=== PATIENT | female | born 1995 | race Caucasian/White ===

== ENCOUNTER 2017-04-10 17:56 | Emergency (ER) | payer BC ==
[~2017-04-10] VITALS: Ht 160 cm; Wt 52.2 kg
[2017-04-10 18:03] VITALS: BP 136/74
--- NOTE | 2017-04-10 18:54 | PHYS DOC ---
Past History Past Medical History: No Pertinent History Past Surgical History: Other Alcohol Use: None Drug Use: None Adult General Chief Complaint Chief Complaint: PAIN ON URINATION HPI HPI Patient is a 21-year-old female who presents here today complaining of dysuria frequency urgency and right flank pain. Patient reports she's had urinary tract infections in the past and this feels similar to it. Patient reports that she started taking Azo for her symptoms. She denies any symptomatology. Patient has any fevers shakes chills nausea vomiting diarrhea cough cold or runny nose. Patient denies any past medical history. Patient has any hypertension diabetes liver longer kidney pals. Patient is not smoke drink or do any drugs. Patient has no known drug allergies. Patient has had no abdominal surgeries in the past. Patient's ER physical exam is significant for mild tenderness to palpation to her left flank pain. Patient reports the pain is reproducible with rotation of her torso. Pain is reproducible with palpation. Patient's abdomen is soft nontender no rebound or guarding. Patient does not present with any signs or symptoms of be consistent with an acute surgical abdomen. Review of systems: Constitutional: Denies fever or chills Eyes: Denies change in visual acuity, redness, or eye pain HENT: Denies nasal congestion or sore throat All other review systems are negative except as documented in the history of present illness portion. Physical exam: Constitutional: Well developed, well nourished, no acute distress, non-toxic appearance. HENT: Normocephalic, atraumatic, bilateral external ears normal, nose normal. Eyes: EOMI, conjunctiva normal, no discharge. Neck: Normal range of motion, no tenderness, supple, no stridor. Cardiovascular:Heart rate regular rhythm Lungs & Thorax: Bilateral breath sounds clear to auscultation no respiratory distress Abdomen: Bowel sounds normal, soft, no tenderness, no masses, no pulsatile masses. Skin: Warm, dry, no erythema, no rash. Back: No tenderness, no CVA tenderness. Extremities: No tenderness, no cyanosis, no clubbing, ROM intact, no edema. Neurologic: Alert and oriented X 3, normal motor function, normal sensory function, no focal deficits noted. Psychologic: Affect normal, judgement normal, mood normal. Assessment and plan Current Patient Data Vital Signs Vital Signs Date Time Temp Pulse Resp B/P (MAP) Pulse Ox O2 Delivery O2 Flow Rate FiO2 8/20/17 18:03 98.3 72 16 97 Room Air EKG EKG [] Radiology/Procedures Radiology/Procedures [] Course & Med Decision Making Course & Med Decision Making Pertinent Labs and Imaging studies reviewed. (See chart for details) [] Dragon Disclaimer Dragon Disclaimer This chart was dictated in whole or in part using Voice Recognition software in a busy, high-work load, and often noisy Emergency Department environment. It may contain unintended and wholly unrecognized errors or omissions. Departure Departure: Impression: Primary Impression: Urinary tract infection Disposition: HOME, SELF-CARE Condition: STABLE Patient Instructions: Urinary Tract Infection Additional Instructions: Thank you for allowing us to participate in your care today. Followup with your primary care physician in 3 days if your symptoms do not improve. Call your Primary Doctor tomorrow and inform them of your visit today. If you do not have a primary care provider you can ask for a list of our primary care providers. Return to the emergency department you have any new or concerning findings. This should be evaluated by the primary care physician and any necessary consulting services for continued management within a few days after discharge. Return to emergency room if you have any new or concerning symptoms including but not limited to fever, chills, nausea, vomiting, intractable pain, any new rashes, chest pain, shortness of air, uncontrolled bleeding, difficulty breathing, and/or vision loss. You may have been prescribed medication that can change in your level of thinking and ability to operate machinery. These medications include hydrocodone and Ativan. Also, Benadryl has been known to do this as well. Be sure to check with your pharmacist and ask if the medications you've prescribed can affect your level of consciousness. I recommend not operating heavy machinery or driving while on medication such as these. You've been seen in the ER today for urinary tract infection. Your been prescribed Keflex for your infection. Please follow-up with your family doctor if the symptoms are not resolved within 2-3 days. He will also be given ibuprofen help you with her pain. Continue with the Pyridium as well. You'll be given a prescription for Pyridium to take over the next couple days. Scripts Phenazopyridine Hcl (PYRIDIUM) 200 Mg Tablet 200 MG PO TID, #6 TAB Prov: DONNA ARGUETA MD 04/10/17 Cephalexin (KEFLEX) 500 Mg Capsule 1 CAP PO TID, #30 CAP Prov: DONNA ARGUETA MD 04/10/17 Problem Qualifiers Primary Impression: Urinary tract infection Urinary tract infection type: acute cystitis Hematuria presence: with hematuria Qualified Codes: N30.01 - Acute cystitis with hematuria DONNA ARGUETA MD Apr 10, 2017 18:54
[2017-04-10 19:08] LABS: BILIRUBIN,URINE NEG (NEG); CLARITY,URINE HAZY; COLOR,URINE ORANGE
[2017-04-10 19:09] LABS: BACTERIA,URINE MOD /HPF (0-FEW); RBC,URINE OCC /HPF (0-2); SQUAMOUS EPITHELIAL CELL,UR OCC /LPF
[2017-04-10 19:16] LABS: U PREG PATIENT NEGATIVE (NEG)
[2017-04-10] MEDS ORDERED: CEPH-264 PO (19:54)
[2017-04-10] MEDS ORDERED: PHEN-318 PO (19:54)
[2017-04-10] MEDS ORDERED: CEPHALEXIN 250 MG CAPSULE ONE (19:56)
[2017-04-10] MEDS ORDERED: CEPHALEXIN 500 MG CAPSULE PO ONE (20:00)
== END 2017-04-10 20:00 | disposition home or self-care (01) ==
LOC: ER 17:56
DX: N39.0 Urinary tract infection, site not specified (principal)
CPT/HCPCS: 81001; 81025; 99284